=== PATIENT | female | born 1995 | race Caucasian/White ===

== ENCOUNTER 2024-09-11 16:41 | Emergency (ER) | payer OTHER, SELFPAY ==
[2024-09-11 16:44] VITALS: BP 134/90
--- NOTE | 2024-09-11 20:35 | ED.GENMED ---
History of Present Illness
<Norris Chong MD, Resident - Last Filed: 09/11/24 23:47>
General
Chief Complaint: Back Pain
Source: patient and spouse
Time Seen by Provider: 09/11/24 20:25
Nursing documentation reviewed up to this point in time: agreed with
Travel History
Have you traveled to any high risk areas for coronavirus over the past 14 days?: No
Have you had any contact with someone who has COVID-19?: No
Do you have any symptoms of coronavirus? Fever > 100 degrees, chills, cough, shortness of breath, sore throat, loss of taste or smell, muscle aches, or headache?: No
History of Present Illness
History of Present Illness:
29-year-old female with PMH of right-sided sciatica who presents to the emergency department today with lower back pain wrapping around her left abdominal region. Patient reports a history of mid back pain due to herniated disc which is different
from the area she is having her pain today. Patient reports that she is 6 to 7 weeks and did speak to his PCP who instructed her to come to the emergency department due to concerns of ectopic . Patient reports a sacral pain rated
8/10, worse with movement and relieved by sitting still. Reports that pain has been intensifying and now wraps around her left lower abdomen, but does not radiate down her legs. She denies fever, chills, nausea, vomiting, diarrhea, chest pain or
shortness of breath.
Past History
<Norris Chong MD, Resident - Last Filed: 09/11/24 23:47>
Past History
ED Past Medical History: Other (Sciatica, herniated disc)
Social History
Tobacco: Non-smoker
Alcohol: None
Personal:
Living: with family
Review of Systems
<Norris Chong MD, Resident - Last Filed: 09/11/24 23:47>
Review of Systems
All Other Systems: ROS reviewed and negative except as documented in HPI and ROS
Phy Exam
<Norris Chong MD, Resident - Last Filed: 09/11/24 23:47>
General Physical Exam
General Presentation: well appearing and moderate distress
General age: appears stated age
Cardiovascular Exam
Cardiovascular Exam: regular rate/rhythm, no edema, no murmur and normal peripheral pulses
Pulmonary Exam
Pulmonary Exam: lungs clear, no respiratory distress, no crackles and no cough
Course
<Norris Chong MD, Resident - Last Filed: 09/11/24 23:47>
Orders/Labs/Results
Orders:
Orders
09/11/24 20:44
Test Result ONCE
09/11/24 21:15
Complete Blood Count/With Diff Urgent
Comprehensive Metabolic Panel Urgent
HCG, Beta Quantitative [Beta HCG Quantitative] Urgent
Is this a screen?: No
Urinalysis Reflex To Culture Urgent
Date Specimen was Collected: 09/11/24
Time Specimen was Collected: 21:00
09/11/24 21:44
US 1st Trimester Urgent
Comment:
Reason For Exam: pelvic pain, back pain
Abnormal Lab Results
09/11/24
21:15
RBC 3.99 L 10^6/uL
(4.20-5.40)
Hgb 11.4 L g/dL
(12.0-16.0)
Hct 32.8 L %
(37.0-47.0)
Monocytes % 10.5 H %
(1.7-9.3)
Sodium 134 L mmol/L
(135-145)
Carbon Dioxide 19 L mmol/L
(22-30)
BUN 5 L mg/dl
(7-17)
Urine Ketones 3+ A
(Negative)
09/11/24 21:15
09/11/24 21:15
Vital Signs
Initial and Last Documented VS:
Initial Vital Signs
Temp Pulse Resp BP Pulse Ox
99 F 118 18 134/90 100
09/11/24 16:44 09/11/24 16:44 09/11/24 16:44 09/11/24 16:44 09/11/24 16:44
Last Documented Vital Signs
Temp Pulse Resp BP Pulse Ox
99 F 94 17 117/60 99
09/11/24 16:44 09/11/24 23:15 09/11/24 23:15 09/11/24 23:38 09/11/24 23:45
<Navdeep Champagne, DO - Last Filed: 09/12/24 02:37>
Orders/Labs/Results
Orders:
Orders
09/11/24 20:44
Test Result ONCE
09/11/24 21:15
Complete Blood Count/With Diff Urgent
Comprehensive Metabolic Panel Urgent
HCG, Beta Quantitative [Beta HCG Quantitative] Urgent
Is this a screen?: No
Urinalysis Reflex To Culture Urgent
Date Specimen was Collected: 09/11/24
Time Specimen was Collected: 21:00
09/11/24 21:44
US 1st Trimester Urgent
Comment:
Reason For Exam: pelvic pain, back pain
Abnormal Lab Results
09/11/24
21:15
RBC 3.99 L 10^6/uL
(4.20-5.40)
Hgb 11.4 L g/dL
(12.0-16.0)
Hct 32.8 L %
(37.0-47.0)
Monocytes % 10.5 H %
(1.7-9.3)
Sodium 134 L mmol/L
(135-145)
Carbon Dioxide 19 L mmol/L
(22-30)
BUN 5 L mg/dl
(7-17)
Urine Ketones 3+ A
(Negative)
09/11/24 21:15
09/11/24 21:15
Vital Signs
Initial and Last Documented VS:
Initial Vital Signs
Temp Pulse Resp BP Pulse Ox
99 F 118 18 134/90 100
09/11/24 16:44 09/11/24 16:44 09/11/24 16:44 09/11/24 16:44 09/11/24 16:44
Last Documented Vital Signs
Temp Pulse Resp BP Pulse Ox
99 F 94 17 117/60 99
09/11/24 16:44 09/11/24 23:15 09/11/24 23:15 09/11/24 23:38 09/11/24 23:45
<Norris Chong MD, Resident - Last Filed: 09/11/24 23:47>
*Critical Care Note
Total Time (30-74mins, 75-104mins- exclusive of procedures): Not Applicable
<Navdeep Champagne DO - Last Filed: 09/12/24 02:37>
*Radiology
Radiology exam reviewed: radiology read reviewed
*Pulse Oximetry
Patient hypoxic: no
Data Reviewed
Source: patient and spouse (Spouse adds that she has had back issues and questions whether she should do stretching)
<Norris Chong MD, Resident - Last Filed: 09/11/24 23:47>
Update Note
Update Note:
Abdominal ultrasound positive for intrauterine with no evidence of ectopic . 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
ED Attending Note
<Norris Chong MD, Resident - Last Filed: 09/11/24 23:47>
-
Portions of this chart may have been created with voice recognition software.� Occasional wrong word or��sound alike� substitutions may have occurred due to the inherent limitations of voice recognition software.
<Navdeep Champagne, - Last Filed: 09/12/24 02:37>
ED Attending Note
Patient seen and examined by attending physician: Yes
I performed a history and physical exam of patient and discussed management with resident, I reviewed resident's note and agree with documented findings and plan of care.: Yes
ED Attending Note:
Low back pain. IUP documented by ultrasound. Otherwise appears well. Nonfocal exam. Does have history of back problems. Recommended Tylenol and light stretching. Okay for outpatient management
Discharge Plan
Departure
Patient Disposition: Home (Routine Discharge)
Date of Disposition: 09/11/24
Time of Disposition: 23:26
Patient with high blood pressure during this ER visit?: Yes
Condition: Good
Covid-19: Not Applicable
Discharge Problem:
Back pain, Lower back pain, Intrauterine
Instructions: Low Back Pain (DC), Radiculopathy (DC)
Referrals:
Delmis Etienne CRNP [Family Provider] -
Activity Restrictions/Additional Instructions:
You presented with low back pain and concerns for ectopic . Your pelvic ultrasound reports intrauterine and no evidence of ectopic . 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
physician in about 7 days. Take Tylenol for pain and use heat on affected area. Mild stretching exercise was discussed today to help with musculoskeletal pain. Please come back to the emergency department if you have any nausea, vomiting,
bleeding, lower extremity motor weakness, increasing abdominal pain.
Interventions
Interventions:
*Risk Screen - Suicide Last Done: 09/11/24 16:44
*General Assessment Last Done: 09/11/24 16:44
*Neglect/Abuse Screening Last Done: 09/11/24 16:44
ED- Fall Risk Assessment Last Done: 09/11/24 21:23
*ED COVID-19 Vaccine History Last Done: 09/11/24 21:23
*Nursing Disposition Last Done: 09/11/24 23:45
ED-Musculoskeletal Assessment Last Done: 09/11/24 21:23
Discharge Date and Time
Discharge Date/Time: 09/11/24 23:47
Print Language: MALAGASY
[2024-09-11 21:22] VITALS: BP 114/59
[2024-09-11 21:25] LABS: Urine Albumin Negative (Neg - Trace); Urine Bilirubin Negative (Negative); Urine Character Clear (Clear); Urine Color Yellow; Urine Glucose Negative (Negative); Urine Ketone 3+ (Negative); Urine Leukocyte Negative (Negative); Urine Nitrite Negative (Negative); Urine Occult Blood Negative (Negative); Urine Specific Gravity 1.015 (<1.030); Urine Urobilinogen Negative (Neg - 1+)
[2024-09-11 21:27] LABS: % Immature Granulocytes 0.2 % (0-0.5); % Lymphocytes 38.7 % (20.5-51.1); % Monocytes 10.5 % (1.7-9.3); % Neutrophils 45.6 % (42.2-75.2); Absolute Basophils 0.1 10^3/uL (0-0.2); Absolute Eosinophils 0.2 10^3/uL (0-0.7); Absolute Lymphocytes 2.2 10^3/uL (1.2-3.4); Absolute Monocytes 0.6 10^3/uL (0.1-0.6); Absolute Neutrophils 2.6 10^3/uL (1.4-6.5); Hematocrit 32.8 % (37.0-47.0); Hemoglobin 11.4 g/dL (12.0-16.0); Mean Corp Hgb Conc. 34.8 g/dL (33.0-37.0); Mean Corpuscular Hgb 28.6 pg (27.0-31.0); Mean Corpuscular Volume 82.2 fL (81.0-99.0); Mean Platelet Volume 9.3 fL (7.4-10.4); Nucleated Red Blood Cells % 0 %; Platelet Count 269 10^3/uL (130-400); Red Blood Cell Count 3.99 10^6/uL (4.20-5.40); Red Cell Dist. Width 12.8 % (11.5-14.5); White Blood Cell Count 5.8 10^3/uL (4.8-10.8)
[2024-09-11 21:29] VITALS: BMI 24.6
[2024-09-11 21:41] LABS: ALT (SGPT) 12 U/L (0-35); AST (SGOT) 18 U/L (14-36); Albumin 4.4 g/dl (3.5-5.0); Alkaline Phosphatase 56 U/L (38-126); Blood Urea Nitrogen 5 mg/dl (7-17); Calcium 9.2 mg/dl (8.4-10.2); Carbon Dioxide 19 mmol/L (22-30); Chloride 103 mmol/L (98-107); Estimated Creatinine Clearance 113 ml/min; Glucose 84 mg/dl (70-99); Potassium 3.6 mmol/L (3.5-5.1); Sodium 134 mmol/L (135-145); Total Bilirubin 0.5 mg/dl (0.2-1.3); Total Protein 6.8 g/dl (6.3-8.2); eGFR > 60.00
[2024-09-11 23:00] VITALS: BP 119/62
[2024-09-11 23:38] VITALS: BP 117/60
== END 2024-09-11 23:47 | disposition home or self-care (01) ==
LOC: EMR 16:41
PROVIDERS: Student in an Organized Health Care Education/Training Program; EMERGENCY PHYSICIAN Emergency Medicine; FAMILY PHYSICIAN Nurse Practitioner
DX: O26.891 Other specified pregnancy related conditions, first trimester (principal); M54.50 Low back pain, unspecified; Z3A.01 Less than 8 weeks gestation of pregnancy
CPT/HCPCS: 99284; 76801; 80053; 81003; 84702; 85025

== ENCOUNTER → 2024-10-26 06:45 | Outpatient (REF) | payer OTHER, SELFPAY | LOC: PNTC 06:45 | PROVIDERS: ATTENDING PHYSICIAN Student in an Organized Health Care Education/Training Program | DX: Z36.0 Encounter for antenatal screening for chromosomal anomalies (principal); Z36.82 Encounter for antenatal screening for nuchal translucency | CPT/HCPCS: 76801; 76813 ==

== ENCOUNTER → 2024-12-15 07:50 | Outpatient (REF) | payer OTHER, SELFPAY | LOC: PNTC 07:50 | PROVIDERS: ATTENDING PHYSICIAN Student in an Organized Health Care Education/Training Program | DX: Z36.0 Encounter for antenatal screening for chromosomal anomalies (principal) | CPT/HCPCS: 76805; 76817 ==

== ENCOUNTER 2025-04-23 18:47 | Observation (INO) | payer OTHER, SELFPAY ==
[2025-04-23 19:35] VITALS: BP 130/73; BMI 29.6
== END 2025-04-23 19:47 | disposition home or self-care (01) ==
LOC: LDRP 18:47
PROVIDERS: ADMITTING PHYSICIAN Obstetrics & Gynecology
DX: O47.1 False labor at or after 37 completed weeks of gestation (principal); Z3A.38 38 weeks gestation of pregnancy
CPT/HCPCS: 36415; 86850; 86900; 86901; G0378

== ENCOUNTER 2025-04-28 17:55 | Observation (INO) | payer OTHER, SELFPAY ==
[2025-04-28 18:00] VITALS: BP 117/71; BMI 29.8
== END 2025-04-28 19:36 | disposition home or self-care (01) ==
LOC: LDRP 17:55
PROVIDERS: ADMITTING PHYSICIAN Obstetrics & Gynecology
DX: O36.8130 Decreased fetal movements, third trimester, not applicable or unspecified (principal); Z3A.39 39 weeks gestation of pregnancy
CPT/HCPCS: 59025; G0378

== ENCOUNTER 2025-05-05 20:10 | Inpatient (IN) | payer OTHER, SELFPAY ==
[2025-05-05 20:19] VITALS: BMI 29.8
[2025-05-05 20:26] VITALS: BP 123/77
[2025-05-05 21:09] LABS: Hematocrit 31.3 % (37.0-47.0); Hemoglobin 10.5 g/dL (12.0-16.0); Mean Corp Hgb Conc. 33.5 g/dL (33.0-37.0); Mean Corpuscular Volume 81.7 fL (81.0-99.0); Nucleated Red Blood Cells % 0 %; Platelet Count 234 10^3/uL (130-400); Red Cell Dist. Width 13.2 % (11.5-14.5)
[2025-05-05] MEDS: CYTOTEC 25 MICROGRAM VAG (21:34)
[2025-05-05] MEDS: LR 1000 IV (22:25)
[2025-05-06] MEDS: CYTOTEC 50 MICROGRAM PO ×3 (01:33→10:53)
[2025-05-06] MEDS: TUMS CHEWABLE TABLET 400 MG PO (07:14)
[2025-05-06] MEDS: STADOL 1 MG IV ×2 (11:50→14:22)
[2025-05-06] MEDS: CYTOTEC PO (15:04)
[2025-05-06] MEDS: PITOCIN 30 UNITS/NSS 500 ML IV ×2 (15:05→23:17)
[2025-05-06] MEDS: SUBLIMAZE 100 MCG EPIDURAL (15:53)
[2025-05-06] MEDS: FENTANYL/BUPIVACAINE 100 EPIDURAL (15:53)
[2025-05-06] MEDS: ZOFRAN 4 MG IV (19:33)
[2025-05-07] MEDS: TYLENOL 650 MG PO ×5 (00:52→20:44)
[2025-05-07] MEDS: CYTOTEC PO (01:04)
[2025-05-07] MEDS: MOTRIN 600 MG PO ×3 (03:52→19:34)
[2025-05-07 06:38] LABS: Hematocrit 29.7 % (37.0-47.0); Hemoglobin 9.8 g/dL (12.0-16.0)
[2025-05-07] MEDS: COLACE 100 MG PO ×2 (09:02→19:35)
[2025-05-07] MEDS: PRENATAL PLUS 1 TABLET PO (09:02)
[2025-05-07 11:37] LABS: Syphilis/T. pallidum Ab Reflex Negative (Negative)
[2025-05-08] MEDS: MOTRIN 600 MG PO ×2 (01:40→08:48)
[2025-05-08] MEDS: TYLENOL 650 MG PO ×2 (01:40→08:47)
[2025-05-08] MEDS: FEOSOL 325 MG PO (08:45)
[2025-05-08] MEDS: COLACE 100 MG PO (08:45)
[2025-05-08] MEDS: PRENATAL PLUS 1 TABLET PO (08:45)
== END 2025-05-08 13:45 | disposition home or self-care (01) | DRG 807 ==
LOC: LDRP 20:10
PROVIDERS: Obstetrics & Gynecology; ADMITTING PHYSICIAN Obstetrics & Gynecology
PROC: 3E0P7VZ Introduction of Hormone into Female Reproductive, Via Natural or Artificial Opening (ICD-10-PCS; 2025-05-05)
PROC: 10907ZC Drainage of Amniotic Fluid, Therapeutic from Products of Conception, Via Natural or Artificial Opening (ICD-10-PCS; 2025-05-06)
PROC: 0UQMXZZ Repair Vulva, External Approach (ICD-10-PCS; 2025-05-06)
PROC: 3E033VJ Introduction of Other Hormone into Peripheral Vein, Percutaneous Approach (ICD-10-PCS; 2025-05-06)
PROC: 4A1HXCZ Monitoring of Products of Conception, Cardiac Rate, External Approach (ICD-10-PCS; 2025-05-06)
PROC: 10E0XZZ Delivery of Products of Conception, External Approach (ICD-10-PCS; 2025-05-06)
DX: O48.0 Post-term pregnancy (principal); Z37.0 Single live birth; O70.1 Second degree perineal laceration during delivery; Z3A.40 40 weeks gestation of pregnancy
CPT/HCPCS: 85014; 85018; 85025; 86780; 86850; 86900; 86901